=== PATIENT | female | born 1975 | race Caucasian/White ===

== ENCOUNTER 2018-06-16 15:14 | Inpatient (IN) | payer MEDICARE, MEDICAID ==
[2018-06-16] MEDS ORDERED: Lidocaine 2% VISCOUS* 15 ML UDC ONE (16:24)
--- NOTE | 2018-06-16 16:51 | HP ---
General Information - Reason for Visit active labor - General Information Maternal Age: 43 Grav: 4 Para: 1 SAB: 1 IEA: 1 Estimated Due Date: 06/15/18 Determined By: LMP Gestational Age in Weeks/Days: 40.1 Maternal Blood Type and Rh: B Positive - Results this Serology/RPR Result: Non-Reactive Rubella Result: Immune HBsAg Result: Negative HIV Result: Negative GBS Culture Result: Negative Past Medical History Delivery History: Hx Uncomplicated Vaginal Delivery Pertinent Past Medical History: See Records Pertinent Past Surgical History: None Pertinent Family History: See Records - DM, stroke, CVD Review of Systems Constitutional: Uncomfortable CV Complaint: No Respiratory: Shortness of Breath: No Gastrointestinal: No Nausea/Vomiting, Normal Bowel Movement Genitourinary: No Dysuria, No Leaking Fluid, Spotting Musculoskeletal: Back Pain, Contractions Neurological: No Headache, No Visual Changes Movement: Normal Exam Allergies/Adverse Reactions: Allergies No Known Allergies Allergy (Verified 08/11/13 06:45) T: 96.5, P:82, R:20, BP:145/77, O2:100 - Measurements Height: 5 ft 5 in Weight: 191 lb Weight in lbs: 191.029331 Body Mass Index (BMI): 31.8 Pre- Weight: 156 lb Weight Gained This : 35 lbs and 0 ozs - Exam Breast: Breast Exam Deferred CVA: No CVA Tenderness Extremities: No Edema Heart: Normal Rhythm/Heart Sounds HEENT: No Significant Findings Lungs: Clear Bilaterally Rectal: Rectal Exam Deferred Reflexes: DTR 2+ Thyroid: No Thyromegaly - Abdominal Exam Abdomen Exam: Fundal Height Consistent with Dates - Ultrasound/Biophysical Profile Ultrasound Status: Not Done Targeted Exam Findings Estimated Weight: 7lbs 10oz Cervical Exam: 3cm Effacement: 90% Station: -1 Presenting Part: Vertex Membrane Status: Bulging Bleeding/Discharge: Bloody Show EFM Findings - External Monitor Findings Baseline Heart Rate: 135 External Monitor Findings: Accelerations Present, No Pattern of Variable or Late Decelerations, Variability Moderate, Baseline Stable Contractions: Regular, Moderate, 45-90 Seconds Contraction Frequency: 2-3 Assessment/Plan - Assessment 43 y.o. , active labor - Plan Plan: Admit - Anticipate Vaginal Delivery - Date/Time of Admission Date of Admission: 06/16/18 Time of Admission: 15:43
[2018-06-16] MEDS ORDERED: Acetaminophen TAB* 325 MG PO PRN (16:53)
[2018-06-16] MEDS ORDERED: Witch Hazel PAD* JAR TOPICAL PRN (16:53)
[2018-06-16] MEDS ORDERED: Glycerin ADULT SUPP PR PRN (16:53)
[2018-06-16] MEDS ORDERED: Buffered Lidocaine 1% SYRIN* 1 ML/SYRINGE INTRADERM ONE (16:53)
[2018-06-16] MEDS ORDERED: Lactated Ringers 1000 ML Bag* 1,000 ML IV ONE (16:53)
[2018-06-16] MEDS ORDERED: Dibucaine 1% 28.35 GM TUBE PR PRN (16:53)
--- NOTE | 2018-06-16 16:53 | PROCNOTE ---
[facility] OB: Delivery Note - Delivery A Date of : 06/16/18 Time of : 16:26 Sex: Male Score 1 Minute: 8 Score 5 Minutes: 9 Gestational Age in Weeks and Days at Delivery: 40 Weeks and 1 Days Delivery Method: Spontaneous Vaginal Labor: Spontaneous Did Patient attempt ?: N/A, No Previous Amniotic Fluid: Clear Estimated Blood Loss: 100 Anesthesia/Analgesia: None Delivered By: Bria Merritt - Nursery Level of Nursery: Regular/Bedside - Perineum Perineal Injury: 1st Degree Perineal Repair: By Delivering Practioner - Events Delivery Events of Note: Precipitous Delivery - Additional Delivery Notes Additional Delivery Notes: nuchal cord, delivered through
[2018-06-16] MEDS ORDERED: Lactated Ringers 1000 ML Bag* 1,000 ML IV SCH ×2 (17:00)
[2018-06-16] MEDS: Simethicone TAB* 80 MG TAB.CHEW PO SCH ×2 (18:01→21:54)
[2018-06-16] MEDS: Docusate CAP* 100 MG PO SCH (21:54)
[2018-06-17] MEDS: Ibuprofen TAB* 600 MG PO PRN ×2 (00:54→08:07)
[2018-06-17 06:17] LABS: ABS Basophils 0.1 10^3/ul (0-0.2); ABS Eosinophils 0 10^3/ul (0-0.6); ABS Lymphocytes 2.7 10^3/ul (1.0-4.8); ABS Monocytes 1.2 10^3/ul (0-0.8); ABS Neutrophils 13.8 10^3/ul (1.5-7.7); ABS Nucleated RBC 0 10^3/ul; Eosinophil % 0.2 %; Hematocrit 32 % (33-41); Hemoglobin 10.5 g/dL (12.0-16.0); Mean Corpuscular HGB Conc 33 g/dL (31-36); Mean Corpuscular Hemoglobin 28 pg (27-31); Mean Corpuscular Volume 84 fL (80-97); Mean Platelet Volume 9.1 fL (7.4-10.4); Nucleated Red Blood Cells % 0; Platelet Count 236 10^3/uL (150-450); Red Blood Count 3.78 10^6 /uL (3.70-4.87); Red Cell Distribution Width 14 % (10.5-15); White Blood Count 17.8 10^3/uL (3.5-10.8)
[2018-06-17] MEDS: Docusate CAP* 100 MG PO SCH (08:07)
[2018-06-17] MEDS ORDERED: Ferrous Gluconate TAB* 324 MG TAB PO SCH (09:00)
[2018-06-17] MEDS: Simethicone TAB* 80 MG TAB.CHEW PO SCH (15:31)
[2018-06-17 15:57] VITALS: BP 125/71
== END 2018-06-17 17:49 | disposition home or self-care (01) | DRG 807 ==
LOC: MCHOBOUT 15:14 → MCHOB 15:43
PROVIDERS: ADMIT Midwife; ATTEND Midwife
PROC: 10E0XZZ Delivery of Products of Conception, External Approach (ICD-10-PCS; principal; 2018-06-16)
PROC: 0HQ9XZZ Repair Perineum Skin, External Approach (ICD-10-PCS; 2018-06-16)
PROC: 4A1HXCZ Monitoring of Products of Conception, Cardiac Rate, External Approach (ICD-10-PCS; 2018-06-16)
DX: O48.0 Post-term pregnancy (principal); O62.3 Precipitate labor; Z37.0 Single live birth; O69.81X0 Labor and delivery complicated by cord around neck, without compression, not applicable or unspecified; O43.893 Other placental disorders, third trimester; O70.0 First degree perineal laceration during delivery; Z3A.40 40 weeks gestation of pregnancy
CPT/HCPCS: 36415; 85025; A9270-GY